=== PATIENT | male | born 1945 | race Caucasian/White ===

== ENCOUNTER 2018-03-23 22:18 | Inpatient (IN) | payer OTHER ==
[~2018-03-23] VITALS: Ht 180.3 cm; Wt 88.5 kg
[~2018-03-23 22:18] MED LIST: ASCORBIC ACID100 MG PO; ASPIRIN325 MG PO; BISOPROLOL FUMAR5 MG PO; CALCIUM + D SO1 EACH PO; CITRUCEL907 G1 PO; FISH OIL EC 1,1 EAC1 PO; IRON 100 PLUS1 EACH PO; IRON325 M1 PO; KEPPRA500 MG PO; LASIX20 MG PO; NASACORT10.8 ML BOTH NARES; NORVASC10 MG PO; OPTIFLEX-C400 MG PO
[2018-03-24 08:25] VITALS: BP 139/78
[2018-03-24 16:38] VITALS: BP 138/82
[2018-03-24 19:50] VITALS: BP 124/76
[2018-03-24 23:13] VITALS: BP 110/60
[2018-03-25 04:20] VITALS: BP 124/76
[2018-03-25 05:25] LABS: HEMATOCRIT 33.4 % (38.0-50.0); MCV 93.6 FL (86-99)
[2018-03-25 05:39] LABS: HEMOGLOBIN 10.8 G/DL (12.5-16.6)
[2018-03-25 05:50] LABS: CHLORIDE 104 MEQ/L (99-109); CREATININE 1.1 MG/DL (0.6-1.3); GFR ESTIMATE (CALCULATED) > 59 mL/min/ (58.99-99999); GLUCOSE 97 mg/dL (70-99); POTASSIUM 3.8 MEQ/L (3.7-5.4); SODIUM 140 MEQ/L (136-147); UREA NITROGEN (BUN) 17 mg/dL (9-23)
[2018-03-25 08:02] VITALS: BP 120/68
[2018-03-25 11:49] VITALS: BP 131/68
[2018-03-25 16:15] VITALS: BP 132/69
[2018-03-25 19:23] VITALS: BP 139/70
[2018-03-25 23:34] VITALS: BP 130/66
[2018-03-26] VITALS (9 sets, daily range): BP systolic 126–159; BP diastolic 62–85
[2018-03-26 03:50] LABS: COMMENTS - BLOOD GASES C+; SITE LR
[2018-03-26 03:51] LABS: PCO2 33 mm Hg (35-45); PO2 91 mm Hg (80-100)
[2018-03-26 03:52] LABS: BASE EXCESS -9.2 mEq/L (-3 to +3); BICARBONATE 16.2 mEq/L (22-26); CARBOXY HGB 1.5 % (0-5); METHEMOGLOBIN 0.7 % (0-1.5)
[2018-03-26 03:59] LABS: HEMATOCRIT 36.5 % (38.0-50.0); HEMOGLOBIN 12.3 G/DL (12.5-16.6); MCH 31.6 PG (29.0-34.0); MCHC 33.7 G/DL (30.0-36.0); MCV 93.8 FL (86-99); PLATELET COUNT 233 K/uL (156-360); RBC DIS.WIDTH-CV 13.7 % (11.8-14.6); RBC DIS.WIDTH-SD 47.1 % (39-53); RED BLOOD COUNT 3.89 M/uL (4.00-5.50); WHITE BLOOD COUNT 12.5 K/uL (4.1-10.2)
[2018-03-26 04:08] LABS: CHLORIDE 105 mEq/L (99-109); POTASSIUM 3.3 mEq/L (3.7-5.4); SODIUM 141 mEq/L (136-147)
[2018-03-26 04:14] LABS: CREATININE 1.3 mg/dL (0.6-1.3); GFR ESTIMATE (CALCULATED) 58 mL/min/ (58.99-99999); GLUCOSE 135 mg/dL (70-99)
[2018-03-26 04:18] LABS: UREA NITROGEN (BUN) 20 mg/dL (9-23)
[2018-03-26 04:30] LABS: MAGNESIUM 2.4 mg/dL (1.3-2.7)
[2018-03-26 04:34] LABS: BASOPHIL (%) 0.3 % (0-1); EOSINOPHIL (%) 2.6 % (0-5); EOSINOPHIL COUNT 0.3 K/uL (0-0.3); IMMATURE GRANULOCYTE (%) 0.7 % (0.0-0.7); LYMPHOCYTE (%) 21.4 % (15-42); LYMPHOCYTE COUNT 2.7 K/uL (1.0-2.8); MONOCYTE (%) 9.4 % (3-12); MONOCYTE COUNT 1.2 K/uL (0-0.8); NEUTROPHIL (%) 65.6 % (45-76); NEUTROPHIL COUNT 8.1 K/uL (1.8-6.4); PHOSPHORUS 2.6 mg/dL (2.5-4.9)
[2018-03-26] MEDS ORDERED: ELIQUIS2.5 MG PO (10:49)
[2018-03-26] MEDS ORDERED: OXYCODONE HCL5 MG PO (10:49)
[2018-03-26] MEDS ORDERED: CELECOXIB200 MG PO (10:49)
[2018-03-26 11:56] LABS: ALBUMIN 4.1 g/dL (3.2-4.8)
[2018-03-26 11:59] LABS: TOTAL PROTEIN 6.6 g/dL (6.4-8.3)
[2018-03-26 12:01] LABS: TOTAL BILIRUBIN 0.7 mg/dL (0.0-1.0)
[2018-03-26 12:02] LABS: ALKALINE PHOSPHATASE 59 IU/L (3-129)
[2018-03-26 12:04] LABS: AST (GOT) 20 IU/L (2-34)
[2018-03-26 12:05] LABS: ALT (GPT) 8 IU/L (3-49)
[2018-03-26 21:23] LABS: APPEARANCE CLEAR ((CLEAR)); BILIRUBIN NEGATIVE; BLOOD NEGATIVE; COLOR YELLOW ((YELLOW)); GLUCOSE (STRIP) NEGATIVE; KETONES NEGATIVE; LEUKOCYTES NEGATIVE; NITRITE NEGATIVE; PROTEIN (STRIP) NEGATIVE; SPECIFIC GRAVITY 1.011 (1.000-1.030); UCUL ADDED? NO; UROBILINOGEN 0.2 MG/DL (0.2-1.0)
[2018-03-27 03:53] VITALS: BP 109/55
[2018-03-27 07:11] LABS: CHLORIDE 108 MEQ/L (99-109); GFR ESTIMATE (CALCULATED) > 59 mL/min/ (58.99-99999); SODIUM 142 MEQ/L (136-147); UREA NITROGEN (BUN) 13 mg/dL (9-23)
[2018-03-27 07:12] LABS: GLUCOSE 91 mg/dL (70-99); POTASSIUM 4.5 MEQ/L (3.7-5.4)
[2018-03-27 07:49] VITALS: BP 130/63
[2018-03-27] MEDS ORDERED: LEVETIRACETAM750 MG PO (08:06)
== END 2018-03-27 10:28 | disposition home or self-care (01) | DRG 470 ==
LOC: ENRESERV 22:18 → 4EAST 03-24 07:35 → 2SOUTH 03-24 07:35 → ENRESERV 03-24 14:41 → 4EAST 03-24 16:22 → ENRESERV 03-25 14:24 → 3EAST 03-25 15:49
PROVIDERS: Family Medicine; Hospitalist; Orthopaedic Surgery
PROC: 0SR904A Replacement of Right Hip Joint with Ceramic on Polyethylene Synthetic Substitute, Uncemented, Open Approach (ICD-10-PCS; principal; 2018-03-24)
DX: M16.11 Unilateral primary osteoarthritis, right hip (principal); E87.2 Acidosis; I48.92 Unspecified atrial flutter; G40.409 Other generalized epilepsy and epileptic syndromes, not intractable, without status epilepticus; E78.5 Hyperlipidemia, unspecified; E87.6 Hypokalemia; I10 Essential (primary) hypertension; I48.2 Chronic atrial fibrillation; F41.9 Anxiety disorder, unspecified; R93.0 Abnormal findings on diagnostic imaging of skull and head, not elsewhere classified; D50.9 Iron deficiency anemia, unspecified; N40.0 Benign prostatic hyperplasia without lower urinary tract symptoms; I34.0 Nonrheumatic mitral (valve) insufficiency; I37.1 Nonrheumatic pulmonary valve insufficiency; I36.1 Nonrheumatic tricuspid (valve) insufficiency; Z79.01 Long term (current) use of anticoagulants; Z79.82 Long term (current) use of aspirin; Z91.19 Patient's noncompliance with other medical treatment and regimen; Z79.51 Long term (current) use of inhaled steroids
CPT/HCPCS: 36600; 70450; 71045; 73501; 80048; 80053; 81003; 82803; 82948; 83605; 83735; 84100; 85014; 85018; 85025; 85027; 87040; 93005; 95819; C1713; J0690; J1170; J1953; J2060; J2250; J2543; J3370; J7030; J7050; J7120; S0020